=== PATIENT | male | born 1995 | race Caucasian/White ===

== ENCOUNTER 2018-09-04 01:44 | Emergency (ER) | payer BC ==
[~2018-09-04] VITALS: Ht 177.8 cm; Wt 81.6 kg
--- NOTE | 2018-09-04 02:16 | NUR ---
ED Nurse Note: Pt fall while shower, twist the L ankle area. pt denies LOC. pt neuro assessment is alert and oriented times 4. vital signs are stable. pt pupiles are round and reactive to light and accomodating. pt has no visible injuries. cap refill in less than 3, pulse and sensation is noted on affected extremity.
--- NOTE | 2018-09-04 02:16 | Emergency Room Report ---
History of Present Illness General Chief Complaint: Lower Extremity Injury Source: Patient Present Illness HPI Patient is a 22-year-old male who presented after increased left foot pain. Patient reports having everted his left foot while in the shower. He denies other locations of pain. He reports having pain to the posterior part of the arch of his left foot. He denies any prior injuries. He reports having pain with ambulation. Allergies: Coded Allergies: No Known Allergies (Unverified , 09/04/18) Patient History Past Medical History: see triage record Reviewed Nursing Documentation: PMH: Agreed; PSxH: Agreed Nursing Documentation-PMH Past Medical History: No Stated History Review of Systems All Other Systems: negative except mentioned in HPI Physical Exam Vital Signs Date Time Temp Pulse Resp B/P (MAP) Pulse Ox O2 Delivery O2 Flow Rate FiO2 09/04/18 02:06 97.5 106 18 124/80 99 Room Air General Appearance: well appearing, no apparent distress, alert, GCS 15, non- toxic Head: normocephalic, atraumatic ENT: hearing grossly normal, normal voice Neck: full range of motion, supple Respiratory: lungs clear, no respiratory distress, speaking full sentences Musculoskeletal: swelling - left foot posterior of arch of foot, no malleolar tenderness Neurologic: normal gait Psychiatric: mood/affect normal Skin: no rash Medical Decision Making Last Vital Signs Date Time Temp Pulse Resp B/P (MAP) Pulse Ox O2 Delivery O2 Flow Rate FiO2 09/04/18 02:06 97.5 106 18 124/80 99 Room Air Sean Barnett MD Sep 04, 2018 02:16
[2018-09-04] MEDS ORDERED: IBUPROFEN600 MG ORAL (02:51)
[2018-09-04 03:03] VITALS: BP 128/77
--- NOTE | 2018-09-04 03:04 | NUR ---
ER DISCHARGE NOTE: Patient is cleared to be discharged per ERMD, pt is aox4, on room air, with stable vital signs. pt was given dc and prescription instructions, pt was able to verbalize understanding, pt id band removed without complications. pt is able to ambulate with steady gait. pt took all belongings.
--- NOTE | 2018-09-04 14:38 | Diagnostic Imaging Report ---
Indication: Left foot pain Technique: 3 views left foot Comparison: none Findings: No acute fractures. No dislocations. The joint spaces are preserved Impression: Negative This agrees with the preliminary interpretation provided by the emergency room physician
== END 2018-09-04 03:05 | disposition home or self-care (01) ==
LOC: EMR 02:37
DX: M25.572 Pain in left ankle and joints of left foot (principal)
CPT/HCPCS: 99283